=== PATIENT | female | born 1940 | race American Indian/Alaskan Native ===

== ENCOUNTER 2016-04-25 11:49 | Day surgery (SDC) | payer MEDICARE ==
[2016-04-25 12:17] VITALS: BP 120/70
[2016-04-25] MEDS ORDERED: IOPIDINE OD ONE (12:21)
[2016-04-25] MEDS ORDERED: NEOFRIN OD ONE (12:21)
[2016-04-25] MEDS ORDERED: MYDRIACYL 1% OD ONE (12:21)
== END 2016-04-25 13:12 | disposition home or self-care (01) ==
LOC: OR 11:49
PROVIDERS: ATTEND Specialist
DX: H26.491 Other secondary cataract, right eye (principal); I10 Essential (primary) hypertension; E78.00 Pure hypercholesterolemia, unspecified; Z96.643 Presence of artificial hip joint, bilateral; Z90.710 Acquired absence of both cervix and uterus; Z90.12 Acquired absence of left breast and nipple

== ENCOUNTER 2016-05-02 11:32 | Day surgery (SDC) | payer MEDICARE ==
[~2016-05-02 11:32] MED LIST: IOPIDINE OS ONE; MYDRIACYL OS ONE; NEOFRIN OS ONE
[2016-05-02] MEDS ORDERED: NEOFRIN OS ONE ×2 (12:00)
[2016-05-02] MEDS ORDERED: MYDRIACYL OS ONE ×2 (12:00)
[2016-05-02] MEDS ORDERED: IOPIDINE OS ONE ×2 (12:00)
[2016-05-02 12:18] VITALS: BP 106/60
== END 2016-05-02 11:33 | disposition home or self-care (01) ==
LOC: OR 11:32
PROVIDERS: ATTEND Specialist
DX: H26.492 Other secondary cataract, left eye (principal)

== ENCOUNTER 2017-02-07 12:07 | Outpatient (CLI) | payer MEDICARE ==
--- NOTE | 2017-02-10 10:53 | Mammography Report ---
Screening right mammogram: The patient is post left mastectomy. Routine views of the right breast compared to her prior exam in September 2013. There is an intermediate density fibroglandular pattern. There is no focal mass, architectural distortion, or suspicious calcification. No interval change identified. CAD used. Impression: Stable right mammogram post left mastectomy. Recommendation: Annual mammogram followup. BI-RADS CATEGORY: 1 = Negative ACR BI-RADS MAMMOGRAPHIC CODES: 0 = Needs additional imaging evaluation; 1 = Negative; 2 = Benign; 3 = Probably benign; 4 = Suspicious; 5 = Malignant; 6 = Known biopsy-proven malignancy COMMENT: 1. Dense breast tissue, i.e., adenosis, fibrocystic changes, etc., may obscure an underlying neoplasm. 2. Approximately 10% of cancers are not detected with mammography. 3. A negative mammography report should not delay biopsy if a clinically suspicious mass is present.
== END 2017-02-07 12:08 | disposition home or self-care (01) ==
LOC: SPVWC 12:07
PROVIDERS: ATTEND Internal Medicine Hematology & Oncology
DX: Z12.31 Encounter for screening mammogram for malignant neoplasm of breast (principal); Z90.12 Acquired absence of left breast and nipple
CPT/HCPCS: 77067; G0202